=== PATIENT | female | born 1990 | race Hispanic/Latino ===

== ENCOUNTER 2020-09-29 20:18 | Emergency (ER) | payer OTHER, SELFPAY ==
--- NOTE | 2020-09-29 22:34 | RAD ---
Portable frontal chest radiograph: 09/29/2020 COMPARISON: None available HISTORY: Injury, trauma, pain FINDINGS: Lungs are clear. Heart and mediastinal contours appear within normal limits. IMPRESSION: No acute findings.
--- NOTE | 2020-09-29 22:35 | RAD ---
Left shoulder 3 views: 09/29/2020 COMPARISON: None HISTORY: Injury, trauma, pain FINDINGS: There is no widening of the acromioclavicular or coracoclavicular interspace. There is no d isplaced fracture or evidence of dislocation. IMPRESSION: No acute findings.
== END 2020-09-29 23:20 | disposition home or self-care (01) ==
LOC: ERS 20:18
DX: S20.212A Contusion of left front wall of thorax, initial encounter (principal); V43.52XA Car driver injured in collision with other type car in traffic accident, initial encounter
CPT/HCPCS: 71045